=== PATIENT | female | born 1950 | race Caucasian/White ===

== ENCOUNTER 2018-04-05 14:52 | Emergency (ER) | payer MEDICARE, OTHER ==
[~2018-04-05] VITALS: Ht 154.9 cm; Wt 96.4 kg
[2018-04-05] MEDS ORDERED: MONT10TA21 PO (16:12)
[2018-04-05] MEDS ORDERED: ASPI-556 PO (16:12)
[2018-04-05] MEDS ORDERED: FURO40I IM (16:12)
[2018-04-05] MEDS ORDERED: LOSA25TA21 PO (16:12)
[2018-04-05] MEDS ORDERED: ATOR10TA84 PO (16:12)
[2018-04-05 16:22] LABS: GLUCOSE,POINT OF CARE 119 MG/DL (70-110)
[2018-04-05] MEDS ORDERED: FentaNYL CITRATE-PF 100 MCG/2 ML VIAL IVP ONE ×2 (16:30→17:15)
[2018-04-05] MEDS ORDERED: LIDOCAINE HCL 1% 10 ML VIAL INJ ONE (17:15)
[2018-04-05 19:20] VITALS: BP 133/67
== END 2018-04-05 19:58 | disposition home or self-care (01) ==
LOC: EMS 14:54
DX: S43.004A Unspecified dislocation of right shoulder joint, initial encounter (principal); E11.9 Type 2 diabetes mellitus without complications; E78.00 Pure hypercholesterolemia, unspecified; I10 Essential (primary) hypertension; Z79.82 Long term (current) use of aspirin; Z90.49 Acquired absence of other specified parts of digestive tract; Z88.8 Allergy status to other drugs, medicaments and biological substances; W01.0XXA Fall on same level from slipping, tripping and stumbling without subsequent striking against object, initial encounter; Y93.89 Activity, other specified; Y92.89 Other specified places as the place of occurrence of the external cause; Y99.8 Other external cause status
CPT/HCPCS: 23650; 70450; 72125; 73030; 73060; 82962; 96374; 96376; 99284; J3010; J3490